=== PATIENT | male | born 1970 | race Hispanic/Latino ===

== ENCOUNTER 2019-03-18 01:04 | Inpatient (IN) | payer BC ==
[2019-03-18] MEDS ORDERED: NITROGLYCERIN 0.4 MG/TAB SL ONE (01:34)
[2019-03-18 01:47] LABS: Absolute Lymphocytes (CBC) 1.6 K/uL (0.7-4.9); Hematocrit 43.3 % (39.6-49.0); Lymphocytes % 26.5 % (15.3-44.8); MPV 8.5 fL (7.6-11.3); RBC Red Blood Cell Count 4.75 M/uL (4.33-5.43)
[2019-03-18] MEDS ORDERED: MAGNE/ALUM HYDROXD 30 ML UCUP ONE (01:51)
[2019-03-18] MEDS ORDERED: LIDOCAINE VISCOUS 2% SOLN 15 ML UDC ONE (01:51)
[2019-03-18 01:59] LABS: ALT/SGPT 27 U/L (12-78); AST/SGOT 13 U/L (15-37); Albumin 3.9 g/dL (3.4-5.0); Alkaline Phosphatase 115 U/L (45-117); BUN Blood Urea Nitrogen 14 mg/dL (7-18); Bicarbonate 24 mmol/L (21-32); Bilirubin Direct < 0.1 mg/dL (0-0.2); Bilirubin Total 0.2 mg/dL (0.2-1.0); Glucose Level 110 mg/dL (74-106); Lipase 146 U/L (73-393); Potassium 3.9 mmol/L (3.5-5.1); Protein, Total 8.1 g/dL (6.4-8.2); Sodium Level 139 mmol/L (136-145); Troponin (Emerg Dept Use Only) < 0.02 ng/mL (0.0-0.045)
[2019-03-18] MEDS ORDERED: ENOXAPARIN 30 MG/0.3 ML SQ ONE (05:00)
[2019-03-18] MEDS ORDERED: ASPIRIN 81 MG CHEWABLE TABLET ONE (05:00)
[2019-03-18] MEDS ORDERED: ENOXAPARIN 100 MG/ML SYR SQ ONE (05:00)
--- NOTE | 2019-03-18 05:00 | EDPHYS ---
Physician Documentation [facility] Name: Bautista Hawkins Age: 48 yrs Sex: Male : 1970 Arrival Date: 03/18/2019 Time: 01:08 Bed 5 Private MD: ED Physician Deven Lowe HPI: 03/18 01:22 This 48 yrs old Male presents to ER via Ambulatory with complaints of Chest rn Pain, Arm Pain. 01:22 The patient or guardian reports chest pain that is located primarily in the substernal rn area, anterior chest wall. Onset: 2 hour(s) ago. The pain radiates to both arms. Associated signs and symptoms: Pertinent positives: None. Pertinent negatives: abdominal pain, diaphoresis, palpitations, recent travel, shortness of breath, syncope, vomiting. The chest pain is described as a heaviness. Duration: The patient or guardian reports a single episode, that is still ongoing. Modifying factors: The symptoms are alleviated by nothing. the symptoms are aggravated by palpation of area. Severity of pain: At its worst the pain was mild in the emergency department the pain has improved. The patient has not experienced similar symptoms in the past. Reports at work, at rest, had just eaten something, then felt heaviness of chest, radiates to both arms, no trauma, no fever/cough/hemoptysis. No abd pain/vomiting/diarrhea. . Historical: - Allergies: 01:19 No Known Allergies; bb - Home Meds: 01:19 None [Active]; bb - PMHx: 01:19 Back pain; knee pain; bb - PSHx: :19 None; bb - Immunization history:: Adult Immunizations up to date. - Social history:: Smoking status: Patient uses tobacco products, denies chronic smoking, but will smoke occasionally, Patient uses alcohol, occasionally. Patient/guardian denies using street drugs. - Ebola Screening: : No symptoms or risks identified at this time. - Family history:: not pertinent. - Hospitalizations: : No recent hospitalization is reported. ROS: 01:22 Constitutional: Negative for fever, chills, and weight loss, Eyes: Negative for injury, rn pain, redness, and discharge, Neck: Negative for injury, pain, and swelling, Cardiovascular: Negative for palpitations, and edema, Respiratory: Negative for shortness of breath, cough, wheezing, and pleuritic chest pain, Abdomen/GI: Negative for abdominal pain, nausea, vomiting, diarrhea, and constipation, MS/Extremity: Negative for injury and deformity, Skin: Negative for injury, rash, and discoloration, Neuro: Negative for headache, weakness, numbness, tingling, and seizure. Exam: 01:22 Constitutional: Overweight male, no acute distress Head/Face: Normocephalic, rn atraumatic. ENT: MMM Cardiovascular: Regular rate and rhythm. No pulse deficits. Respiratory: Lungs have equal breath sounds bilaterally, clear to auscultation. No increased work of breathing, no retractions or nasal flaring. Abdomen/GI: soft, non-tender MS/ Extremity: Pulses equal, no cyanosis. Neurovascular intact. Full, normal range of motion. Equal circumference. Neuro: Awake and alert, GCS 15, oriented to person, place, time, and situation. Cranial nerves II-XII grossly intact. Motor strength 5/5 in all extremities. Sensory grossly intact. Cerebellar exam normal. Vital Signs: 01:19 BP 158 / 104; Pulse 87; Resp 16 S; Temp 97.5(O); Pulse Ox 100% on R/A; Weight 120.2 kg bb (R); Height 5 ft. 7 in. (170.18 cm) (R); Pain 8/10; 02:39 BP 149 / 86; Pulse 76; Resp 18 S; Pulse Ox 98% on R/A; Pain 6/10; jd3 03:47 BP 157 / 86; Pulse 80; Resp 19 S; Pulse Ox 99% on R/A; Pain 6/10; jd3 05:20 BP 144 / 80; Pulse 77; Resp 14 S; Pulse Ox 98% on R/A; jd3 01:19 Body Mass Index 41.50 (120.20 kg, 170.18 cm) bb MDM: 01:16 Patient medically screened. rn 04:57 Differential diagnosis: acute myocardial infarction, coronary artery disease pleurisy, rn stable angina, unstable angina. The patient was given aspirin in the Emergency Department. Data reviewed: vital signs, nurses notes, lab test result(s), EKG, radiologic studies, plain films, and as a result, I will admit patient. Counseling: I had a detailed discussion with the patient and/or guardian regarding: the historical points, exam findings, and any diagnostic results supporting the discharge/admit diagnosis, lab results, radiology results, the need for further work-up and treatment in the hospital. Response to treatment: the patient's symptoms have markedly improved after treatment, and as a result, I will discharge patient. ED course: Patient with pain resolved after nitroglycerin and GI cocktail. Repeat ECG now with inverted t waves in aVL, and trop up to 0.08. Will admit to Dr. Chawla for cardiology consultation and w/u. . 03/18 01:22 Order name: CBC with Diff; Complete Time: 02:27 rn 03/18 01:22 Order name: Basic Metabolic Panel; Complete Time: 02:02 rn 03/18 01:22 Order name: Troponin (emerg Dept Use Only); Complete Time: 02:02 rn 03/18 01:22 Order name: Lipase; Complete Time: 02:02 rn 03/18 01:22 Order name: LFT's; Complete Time: 02:02 rn 03/18 03:58 Order name: Troponin (emerg Dept Use Only); Complete Time: 04:52 rn 03/18 01:22 Order name: IV Start; Complete Time: 01:36 rn 03/18 01:22 Order name: EKG; Complete Time: 01:24 rn 03/18 01:22 Order name: CT Aorta for Dissection rn 03/18 03:58 Order name: EKG; Complete Time: 03:59 rn 03/18 01:22 Order name: EKG - Nurse/Tech; Complete Time: 01:35 rn 03/18 03:58 Order name: EKG - Nurse/Tech; Complete Time: 04:15 rn Administered Medications: 01:35 Drug: Nitroglycerin 0.4 mg Route: Sublingual; jd3 02:30 Follow up: Response: No adverse reaction jd3 01:55 Drug: GI Cocktail without - (Maalox Suspension 30 ml, Lidocaine Liquid 2 % 15 jd3 ml) Route: PO; 02:50 Follow up: Response: No adverse reaction jd3 05:10 Drug: Lovenox 1 mg/kg Route: Sub-Q; Site: abdomen; jd3 05:32 Follow up: Response: No adverse reaction jd3 05:10 Drug: Aspirin Chewable Tablet 324 mg Route: PO; jd3 05:32 Follow up: Response: No adverse reaction jd3 Disposition: 03/18/19 04:59 Hospitalization ordered by Mino Chawla for Inpatient Admission. Preliminary diagnosis is Non-ST elevation (NSTEMI) myocardial infarction. - Bed requested for Telemetry/MedSurg (Inpatient). - Status is Inpatient Admission. jd3 - Condition is Stable. - Problem is new. - Symptoms have improved. UTI on Admission? No Signatures: Dispatcher [employer] EDMS Ayesha Sarmiento RN RN bb Nieto, Roman, MD MD rn Martinez, Eric em1 Jai Miles RN RN jd3 Corrections: (The following items were deleted from the chart) 05:18 04:59 Hospitalization Ordered by Mino Chawla MD for Inpatient Admission. Preliminary em1 diagnosis is Non-ST elevation (NSTEMI) myocardial infarction. Bed requested for Telemetry/MedSurg (Inpatient). Status is Inpatient Admission. Condition is Stable. Problem is new. Symptoms have improved. UTI on Admission? No. rn 05:38 05:18 03/18/2019 04:59 Hospitalization Ordered by Mino Chawla MD for Inpatient jd3 Admission. Preliminary diagnosis is Non-ST elevation (NSTEMI) myocardial infarction. Bed requested for Telemetry/MedSurg (Inpatient). Status is Inpatient Admission. Condition is Stable. Problem is new. Symptoms have improved. UTI on Admission? No. em1
--- NOTE | 2019-03-18 05:00 | ER ---
Nurse's Notes [facility] Name: Bautista Hawkins Age: 48 yrs Sex: Male : 1970 Arrival Date: 03/18/2019 Time: 01:08 Bed 5 Private MD: Diagnosis: Non-ST elevation (NSTEMI) myocardial infarction Presentation: 03/18 01:17 Presenting complaint: Patient states: he started having chest pain approx 2 hours ago bb with bilateral arm pain had an episode of nausea as well pain currently is 8/10. Transition of care: patient was not received from another setting of care. Onset of symptoms was March 16, 2019. Risk Assessment: Do you want to hurt yourself or someone else? Patient reports no desire to harm self or others. Initial Sepsis Screen: Does the patient meet any 2 criteria? No. Patient's initial sepsis screen is negative. Does the patient have a suspected source of infection? No. Patient's initial sepsis screen is negative. Care prior to arrival: None. 01:17 Method Of Arrival: Ambulatory bb 01:17 Acuity: KATARZYNA 3 bb Historical: - Allergies: 01:19 No Known Allergies; bb - Home Meds: 01:19 None [Active]; bb - PMHx: 01:19 Back pain; knee pain; bb - PSHx: 01:19 None; bb - Immunization history:: Adult Immunizations up to date. - Social history:: Smoking status: Patient uses tobacco products, denies chronic smoking, but will smoke occasionally, Patient uses alcohol, occasionally. Patient/guardian denies using street drugs. - Ebola Screening: : No symptoms or risks identified at this time. - Family history:: not pertinent. - Hospitalizations: : No recent hospitalization is reported. Screenin:37 Abuse screen: Denies threats or abuse. Nutritional screening: No deficits noted. jd3 Tuberculosis screening: No symptoms or risk factors identified. Fall Risk IV access (20 points). Ambulatory Aid- None/Bed Rest/Nurse Assist (0 pts). Gait- Normal/Bed Rest/Wheelchair (0 pts) Mental Status- Oriented to own ability (0 pts). Total Bentley Fall Scale indicates No Risk (0-24 pts). Assessment: 01:20 General: Appears in no apparent distress. uncomfortable, Behavior is calm, cooperative, jd3 appropriate for age. Pain: Complains of pain in chest, right arm and left arm Pain does not radiate. Quality of pain is described as aching, pressure, Pain began 30 min ago. Neuro: Level of Consciousness is awake, alert, obeys commands, Oriented to person, place, time, situation. Cardiovascular: Heart tones S1 S2 present Capillary refill < 3 seconds Patient's skin is warm and dry. Rhythm is regular. Respiratory: Airway is patent Respiratory effort is even, unlabored, Respiratory pattern is regular, symmetrical, Breath sounds are clear bilaterally. Denies cough, shortness of breath at rest. GI: No signs and/or symptoms were reported involving the gastrointestinal system. : No signs and/or symptoms were reported regarding the genitourinary system. EENT: No signs and/or symptoms were reported regarding the EENT system. Derm: Skin is intact, Skin is dry, Skin is normal, Skin temperature is warm. Musculoskeletal: Circulation, motion, and sensation intact. Range of motion: intact in all extremities. 02:41 Reassessment: Patient appears in no apparent distress at this time. Patient and/or jd3 family updated on plan of care and expected duration. Pain level reassessed. Patient is alert, oriented x 3, equal unlabored respirations, skin warm/dry/pink. 03:47 Reassessment: Patient appears in no apparent distress at this time. Patient and/or jd3 family updated on plan of care and expected duration. Pain level reassessed. Patient is alert, oriented x 3, equal unlabored respirations, skin warm/dry/pink. awaiting results and disposition. 04:30 Reassessment: Patient appears in no apparent distress at this time. Patient and/or jd3 family updated on plan of care and expected duration. Pain level reassessed. Patient is alert, oriented x 3, equal unlabored respirations, skin warm/dry/pink. Patient states feeling better. 05:17 Reassessment: Patient appears in no apparent distress at this time. Patient and/or jd3 family updated on plan of care and expected duration. Pain level reassessed. Patient is alert, oriented x 3, equal unlabored respirations, skin warm/dry/pink. awaiting admission. 05:29 Reassessment: report given to Alexa graves Vital Signs: 01:19 BP 158 / 104; Pulse 87; Resp 16 S; Temp 97.5(O); Pulse Ox 100% on R/A; Weight 120.2 kg bb (R); Height 5 ft. 7 in. (170.18 cm) (R); Pain 8/10; 02:39 BP 149 / 86; Pulse 76; Resp 18 S; Pulse Ox 98% on R/A; Pain 6/10; jd3 03:47 BP 157 / 86; Pulse 80; Resp 19 S; Pulse Ox 99% on R/A; Pain 6/10; jd3 05:20 BP 144 / 80; Pulse 77; Resp 14 S; Pulse Ox 98% on R/A; jd3 01:19 Body Mass Index 41.50 (120.20 kg, 170.18 cm) bb ED Course: 01:08 Patient arrived in ED. cf2 01:16 Deven Lowe MD is Attending Physician. rn 01:18 Triage completed. bb 01:19 Arm band placed on Patient placed in an exam room, on a stretcher, on applications sales representative, bb on pulse oximetry. EKG completed in triage. Results shown to MD. 01:35 Jai Miles, RN is Primary Nurse. jd3 01:37 Patient has correct armband on for positive identification. Placed in gown. Bed in low jd3 position. Call light in reach. Side rails up X2. powder blender and pourer on. Pulse ox on. NIBP on. 01:37 Inserted saline lock: 20 gauge in right antecubital area, using aseptic technique. jd3 Blood collected. Patient maintains SpO2 saturation greater than 95% on room air. 01:59 Radiology exam delayed due to lab results not completed at this time. (BUN/Creatinine). mw3 02:50 CT Aorta for Dissection In Process Unspecified. EDMS 04:15 Troponin (emerg Dept Use Only) Sent. jd3 04:59 Mino Chawla MD is Hospitalizing Provider. rn 05:21 No provider procedures requiring assistance completed. Patient admitted, IV remains in jd3 place. Administered Medications: 01:35 Drug: Nitroglycerin 0.4 mg Route: Sublingual; jd3 02:30 Follow up: Response: No adverse reaction jd3 01:55 Drug: GI Cocktail without - (Maalox Suspension 30 ml, Lidocaine Liquid 2 % 15 jd3 ml) Route: PO; 02:50 Follow up: Response: No adverse reaction jd3 05:10 Drug: Lovenox 1 mg/kg Route: Sub-Q; Site: abdomen; jd3 05:32 Follow up: Response: No adverse reaction jd3 05:10 Drug: Aspirin Chewable Tablet 324 mg Route: PO; jd3 05:32 Follow up: Response: No adverse reaction jd3 Outcome: 04:59 Decision to Hospitalize by Provider. rn 05:30 Admitted to Tele accompanied by tech, via wheelchair, room 216, with chart, Report jpipo called to Alexa HERNANDES 05:30 Condition: stable 05:30 Instructed on the need for admit, Demonstrated understanding of instructions. 05:38 Patient left the ED. ely Signatures: Dispatcher [employer] Ayesha Tanner RN RN bb Nieto, Roman, MD MD rn Davies, Jonathon, RN RN jd3 Willis, Michelle mw3 Eric Wiggins cf2
[2019-03-18] MEDS ORDERED: ONDANSETRON 4 MG/2 ML VIAL IV PRN (05:38)
[2019-03-18] MEDS ORDERED: MORPHINE 4 MG/ML SYR IV PRN (05:38)
[2019-03-18 06:04] VITALS: BMI 43.2
[2019-03-18] MEDS ORDERED: LIDOCAINE 1% MPF 30 ML VIAL ONE (08:02)
[2019-03-18] MEDS ORDERED: HEPA 1000U/500MLS 1,000 UNIT/500 ML BAG IV ONE (08:02)
--- NOTE | 2019-03-18 08:27 | EKG ---
Test Date: 2019-03-18 Test Time: 04:04:50 Executive Asst: KARELY MEASUREMENT RESULTS: Intervals: Rate: 74 MA: 138 QRSD: 98 QT: 382 QTc: 424 [place]: P: 15 MA: 138 QRS: 43 T: 88 INTERPRETIVE STATEMENTS: Normal sinus rhythm Septal infarct, age undetermined Possible Inferior infarct, age undetermined Abnormal ECG No previous ECG available for comparison Electronically Signed On 03-18-19 08:26:47 CDT by Adam Larios
[2019-03-18] MEDS ORDERED: NA CHLORIDE 0.9% 500 ML ONE (08:28)
--- NOTE | 2019-03-18 08:28 | EKG ---
Test Date: 2019-03-18 Test Time: 01:18:46 Oxygen System Tester: SOFÍA MEASUREMENT RESULTS: Intervals: Rate: 81 NV: 142 QRSD: 98 QT: 376 QTc: 436 [place]: P: 11 NV: 142 QRS: 37 T: 61 INTERPRETIVE STATEMENTS: Normal sinus rhythm Normal ECG No previous ECG available for comparison Electronically Signed On 03-18-19 08:26:52 CDT by Adam Larios
[2019-03-18] MEDS ORDERED: ASPIRIN EC 81 MG TAB PO SCH (09:00)
[2019-03-18] MEDS ORDERED: MIDAZOLAM HCL 2 MG/2 ML INJ ONE (09:11)
[2019-03-18] MEDS ORDERED: FENTANYL CITR 100 MCG/2 ML ONE (09:11)
[2019-03-18] MEDS ORDERED: NA CHLORIDE 0.9% 0 ML ONE (09:12)
[2019-03-18] MEDS ORDERED: ATROPINE SULF 1 MG/10 ML SYR IV ONE (09:12)
[2019-03-18 09:25] LABS: Protime INR 0.99
--- NOTE | 2019-03-18 10:15 | RAD REPORT ---
EXAM DESCRIPTION: CT - Angio Aorta For Dissection - 03/18/2019 3:37 am CLINICAL HISTORY: The patient is 48 years old and is Male; CHEST PAIN TECHNIQUE: Axial computed tomographic angiography images of the chest, abdomen and pelvis with intra venous contrast. Sagittal and coronal reformatted images were created and reviewed. This CT exam was performed using one or more of the following dose reduction techniques: automated exposure cont rol, adjustment of the mA and/or kV according to patient size, and/or use of iterative reconstruction technique. MIP reconstructed images were created and reviewed. COMPARISON: No relevant prior studies available. FINDINGS: VASCULATURE: AORTA: No acute findings. No aortic aneurysm. No dissection. PULMONARY ARTERIES: Unremarkable as visualized. No pulmonary embolism is identified. GREAT VESSELS OF AORTIC ARCH: No acute findings. No dissection. No arterial occlusion or sig nificant stenosis. CELIAC TRUNK AND MESENTERIC ARTERIES: No acute findings. No occlusion or significant stenosis. RENAL ARTERIES: No acute findings. No occlusion or significant stenosis. ILIAC ARTERIES: No acute findings. No occlusion or significant stenosis. CHEST: LUNGS: Unremarkable. No mass. No consolidation. PLEURAL SPACE: Unremarkable. No significant effusion. No pneumothorax. HEART: Unremarkable. No cardiomegaly. No significant pericardial effusion. ABDOMEN: LIVER: Unremarkable. No mass. GALLBLADDER AND BILE DUCTS: Unremarkable. No calcified stones. No ductal dilation. PANCREAS: Unremarkable. No ductal dilation. No mass. SPLEEN: Unremarkable. No splenomegaly. ADRENALS: Unremarkable. No mass. KIDNEYS AND URETERS: Unremarkable. No hydronephrosis. No solid mass. STOMACH AND BOWEL: The stomach is distended with food contents. The small bowel is normal in elissa iber. A moderate amount stool is present throughout the colon. There is no mucosal thickening or evid ence of bowel obstruction. PELVIS: APPENDIX: The appendix is normal in caliber without surrounding inflammation. BLADDER: Unremarkable. No mass. REPRODUCTIVE: Unremarkable as visualized. CHEST, ABDOMEN and PELVIS: INTRAPERITONEAL SPACE: Unremarkable. No significant fluid collection. No free air. BONES/JOINTS: No acute fracture. No dislocation. SOFT TISSUES: Unremarkable. LYMPH NODES: Unremarkable. No enlarged lymph nodes. IMPRESSION: No evidence of vascular abnormality. No aneurysm or dissection. No acute findings. Electronically signed by: Brenda Hernandez MD 03/18/2019 3:31 AM CDT Due to temporary technical issues with the PACS/Fluency reporting system, reports are being signed by the in house radiologist as a courtesy to ensure prompt reporting. The interpreting radiologist is f ully responsible for the content of the report.
--- NOTE | 2019-03-18 10:22 | CON ---
Date of Consultation: 03/18/[address] Chawla's service on 03/18/2019, I saw the patient on 03/18/2019. Reason For Consultation: Acute ncn-BY-lwjkhtcgj myocardial infarction. History Of Present Illness: Mr. Hawkins is a 48-year-old male, had no significant past medical history. He has a family history of hypertension and diabetes, but no coronary artery disease. He admitted to smoking, but very little, only when he drinks alcohol, was not uncommon. He does not have any his tory himself of diabetes, hypertension, or dyslipidemia. He came in with substernal chest pressure r adiating to both arms with exertion, lasted 30 minutes, got nauseated. No shortness of breath. No d iaphoresis. Initial episode lasted about 30 minutes. This reoccurred again, it lasted longer, about an hour, and unrelieved with 6 Tums, and he came to the emergency room. His EKG was normal. Chest x-ray was normal. BNP was normal, but his troponin was positive suggestive of a subendocardial myoca rdial infarction. The troponin was 0.16. He is now still having slight pain when he exerts himself. Past Medical History: Negative. Allergies: NONE. Review of Systems: Negative. Social History: As stated earlier. Family History: Stated earlier. Physical Examination: Vital Signs: Stable. He was afebrile. HEENT: Negative. Neck: Supple without any bruit, lymphadenopathy, JVD, or thyromegaly. Chest: Clear to auscultation and percussion. Cardiac: Exam revealed a regular rhythm and rate. No murmurs, gallops, or rubs. Abdomen: Benign. Extremities: Revealed no clubbing, cyanosis, or edema. Diagnostic Data: That were available to me were stated earlier. Impression And Plan: Acute mik-RO-wynqnbieu myocardial infarction. Continues to have some mild ches t pain with exertion. We will take him to the production laborer urgently this morning to define his coronary anatomy. The patient understands the risk and the benefits of the heart catheterization and he agree d to proceed. I agree with his present regimen right now with aspirin and beta blockers. We will se e what we found on heart catheterization prior to making further decision regarding his therapy. The case was discussed briefly with Dr. Chawla. BREANN/SMITH Voice ID: [id number] Report ID: [id number]
--- NOTE | 2019-03-18 14:36 | OP ---
Date of Procedure: 03/18/2019 Surgeon: Adam Larios MD Satin Finisher: Elaine Mcconnell. Procedures: Left heart catheterization and selective coronary arteriogram. Indication For The Procedure: Ezp-XP-zofbumcwt myocardial infarction. Mr. Hawkins is a 48-year-old Latin-Romanian male with history of obesity, tobacco abuse, family history of hypertension and diabetes, came in with substernal chest pressure radiating to both arm with some nausea and normal EKG, [QAMARKER]troponin of 0.16 and then 0.54 consistent with subendocardial VA. Rad zheng received Lovenox and aspirin in the emergency room. He was brought [facility] the pharmacy [facility] He was prepped and draped in the routine sterile fashion. He was given 4 mg of Versed and 5 0 of fentanyl for sedation. A 6-Portuguese sheath introduced in the right common femoral artery. Angiog taylor was done using Pratibha catheter. The JR4 were used to select the right coronary artery, which was very dominant and large without any disease. The JL4 Pratibha catheter was used to cannulate the left main. The circumflex was normal, was nondominant, but yet large. The LAD had some moderate tito quing in the mid LAD, was again a large vessel without any focal stenosis. Complications: None. Blood Loss: 5 cc. Anesthesia: Total conscious sedation was 30 minutes. Final Diagnosis: Minimal coronary artery disease. Plan: Plan is for medical therapy. I will put the patient on aspirin, Zocor and Toprol. BREANN/SMITH Voice ID: [id number] Report ID: [id number]
[2019-03-18] MEDS ORDERED: ACETAMINOPHEN 325 MG TABLET PO PRN (15:00)
[2019-03-18] MEDS ORDERED: NITROGLYCERIN 0.4 MG/TAB SL PRN (15:00)
[2019-03-18] MEDS ORDERED: NA CHLORIDE 0.9% 1,000 ML IV SCH (15:00)
--- NOTE | 2019-03-18 16:06 | OP ---
Date of Procedure: 03/18/2019 Surgeon: Adam Larios MD Debt Management Counselor: Elaine Mcconnell. Procedures: Left heart catheterization and selective coronary arteriogram. Indication For The Procedure: Vjv-LT-oatxjnelp myocardial infarction. Mr. Hawkins is a 48-year-old Latin-Namib[place] male with history of obesity, tobacco abuse, family history of hypertension and diabetes, came in with substernal chest pressure radiating to both arm with some nausea and normal EKG, abnormal troponin of 0.16 and then 0.54 consistent with subendocardial MO. He received Lovenox and aspirin in the emergency room. He was brought to the field laboratory operator today as an inpa tient. He was prepped and draped in the routine sterile fashion. He was given 4 mg of Versed and 50 of fentanyl for sedation. A 6-Georgian sheath introduced in the right common femoral artery. Angiogr aphy was done using Pratibha catheter. The JR4 were used to select the right coronary artery, which w as very dominant and large without any disease. The JL4 Pratibha catheter was used to cannulate the l eft main. The circumflex was normal, was nondominant, but yet large. The LAD had some moderate plaq uing in the mid LAD, was again a large vessel without any focal stenosis. Complications: None. Blood Loss: 5 cc. Anesthesia: Total conscious sedation was 30 minutes. Final Diagnosis: Minimal coronary artery disease. Plan: Plan is for medical therapy. I will put the patient on aspirin, Zocor and Toprol. BREANN/SMITH Voice ID: [id number] Report ID: [id number]
[2019-03-18 18:14] VITALS: O2SAT 100
[2019-03-18 19:23] VITALS: BP 148/84; TEMP 98.1
--- NOTE | 2019-03-18 20:51 | HP ---
Date of Admission: 03/18/2019 Final Diagnoses: 1.Chest pain. 2.Osteoarthritis, knee and back. History: This 48-year-old male was brought to the emergency room because of chest pain lasting for 2 hours with radiation to arms. Patient had changes on the EKG and mild elevation of troponin. Based on that, patient was admitted. There was no history of fever, chills, rigors. Past Medical History: Positive for osteoarthritis, back pain. Family History: Diabetes, hypertension present. Personal History: Nonsmoker. Past Surgical History: Negative. Review of Systems: No fever, chills, rigors. Physical Examination: General: Revealed a 48-year-old obese male. Vital Signs: Stable. HEENT: Negative. Neck: Supple. JVD negative. Chest: Clear. Heart: Regular. Abdomen: Soft. Extremities: No edema. Neurological: Negative. Laboratory Data: CBC normal. Chem profile, troponin 0.08. Lipase normal. EKG, T-wave inversions, new. Assessment: 1.Chest pain. 2.Osteoarthritis. 3.Back pain. Hospital Course: After admission to the hospital, patient was seen by Cardiology service. Because o f active changes, he underwent cardiac catheterization. However, there was no evidence of lesion arash t needed angioplasty. Patient is placed on statin, aspirin, and discharged home to have outpatient f adrienne. JUAN/SMITH Voice ID: [id number]
== END 2019-03-18 16:50 | disposition home or self-care (01) | DRG 281 ==
LOC: ER 01:04 → 2ND 05:34
PROVIDERS: ADMIT Internal Medicine; ATTEND Internal Medicine
PROC: 4A023N7 Measurement of Cardiac Sampling and Pressure, Left Heart, Percutaneous Approach (ICD-10-PCS; principal; 2019-03-18)
PROC: B205YZZ Plain Radiography of Left Heart using Other Contrast (ICD-10-PCS; 2019-03-18)
PROC: B201YZZ Plain Radiography of Multiple Coronary Arteries using Other Contrast (ICD-10-PCS; 2019-03-18)
DX: I21.4 Non-ST elevation (NSTEMI) myocardial infarction (principal); Z68.41 Body mass index [BMI] 40.0-44.9, adult; M17.10 Unilateral primary osteoarthritis, unspecified knee; M47.9 Spondylosis, unspecified; E66.9 Obesity, unspecified; I25.10 Atherosclerotic heart disease of native coronary artery without angina pectoris; F17.210 Nicotine dependence, cigarettes, uncomplicated
CPT/HCPCS: 36415; 71275; 74175; 80048; 80076; 83690; 84484; 85025; 85610; 85730; 93005; 93454; 96372; 99285; C1760; C1893; J0583; J1650; J2250; J3010; Q9967